=== PATIENT | male | born 1960 | race Caucasian/White ===

== ENCOUNTER 2019-10-13 17:41 | Inpatient (IN) | payer MEDICAID, SELFPAY ==
[~2019-10-13] VITALS: Ht 172.7 cm; Wt 81.2 kg
[2019-10-13] MEDS ORDERED: ACETAMINOPHEN 650MG SUPP PR ONE (18:00)
[2019-10-13 20:24] LABS: BASOPHILS % 0.5 % (0.0-2.0); HEMATOCRIT. 40.1 % (42.0-52.0); HEMOGLOBIN. 13.3 g/dL (14.0-18.0); LYMPHOCYTES % 10.6 % (20.0-50.0); MEAN CORPUSCULAR HEMOGLOBIN 32.3 pg (28.0-32.0); MEAN CORPUSCULAR VOLUME 97.2 fL (80.0-94.0); MONOCYTES % 10.3 % (2.0-8.0); NEUTROPHILS % 78.6 % (40.0-76.0); PLATELET 98 x1000/uL (130-400); RED BLOOD CELL COUNT 4.13 mill/uL (4.7-6.1); RED CELL DISTRIBUTION WIDTH 13.8 % (11.6-14.6)
[2019-10-13 20:29] LABS: INR 1.2; PROTHROMBIN TIME 12.7 sec (9.6-11.0)
[2019-10-13 20:34] LABS: CHLORIDE 123 mEq/L (98-107)
[2019-10-13 20:43] LABS: CREATINE KINASE 35 IU/L (39-308)
[2019-10-13 20:53] LABS: CLARITY URINE CLOUDY (CLEAR); COLOR URINE DARK YELLOW (YELLOW); KETONES URINE TRACE (NEGATIVE); LEUKOCYTE ESTERASE URINE 1+ (NEGATIVE); NITRITE URINE NEGATIVE (NEGATIVE); OCCULT BLOOD URINE NEGATIVE (NEGATIVE); PROTEIN URINE 2+ (NEGATIVE)
[2019-10-13] MEDS ORDERED: SODIUM CHLORIDE 0.45% 1,000 ML IV ONE (21:15)
[2019-10-13] MEDS ORDERED: VANCOMYCIN 1 G PREMIX 200 ML IV ONE (21:15)
[2019-10-13] MEDS ORDERED: PIPERACILLIN/TAZ 3.375G PREMIX 50 ML IV ONE (21:15)
[2019-10-14 06:15] LABS: CHLORIDE 121 mEq/L (98-107)
[2019-10-14] MEDS ORDERED: AZITHROMYCIN 500 MG TABLET PO SCH (11:19)
[2019-10-14] MEDS ORDERED: PIPERACILLIN/TAZOBACTAM 2.25 G in DEXTROSE 5% WATER 50 ML IV SCH ×2 (11:30→17:00)
[2019-10-14 12:00] VITALS: BP_SYST 110; BP_SYST 120; BP_DIAS 83
[2019-10-14] MEDS ORDERED: OMEP20TA15 GT (13:35)
[2019-10-14] MEDS ORDERED: LORA-249 MT (13:35)
[2019-10-14] MEDS ORDERED: [UNRECOGNIZED DRUG - CODE] GT (13:35)
[2019-10-14] MEDS ORDERED: BISA10SU62 RC (13:35)
[2019-10-14 13:36] VITALS: BP 120/83
[2019-10-14] MEDS ORDERED: MAGNESIUM/ALUMINUM HYDROXIDE/SIMETHICONE 30ML UDC PO PRN (14:15)
[2019-10-14] MEDS ORDERED: ACETAMINOPHEN 325MG TABLET PO PRN (14:15)
[2019-10-14] MEDS ORDERED: ONDANSETRON HCL 4MG/2ML INJ IV PRN (14:15)
[2019-10-14] MEDS ORDERED: CLONIDINE 0.1MG TABLET PO PRN (14:15)
[2019-10-14] MEDS ORDERED: DOCUSATE SODIUM 100MG CAPSULE PO PRN (14:15)
[2019-10-14] MEDS ORDERED: LORAZEPAM 0.5MG TABLET PO PRN (14:15)
[2019-10-14 16:00] VITALS: BP 110/83
[2019-10-14] MEDS: DEXTROSE 5% WATER 1,000 ML IV SCH (16:46)
[2019-10-14 17:35] LABS: SODIUM URINE RANDOM 51 mEq/L
[2019-10-14] MEDS ORDERED: NA PHOS,M-B/NA PHOS,DI-BA ENEMA 118ML PR NR ×2 (17:48→20:00)
[2019-10-14] MEDS ORDERED: PIPERACILLIN/TAZOBACTAM 3.375 G in DEXT 5% WATER 100 ML IV SCH ×2 (18:00→22:00)
[2019-10-14 20:00] VITALS: BP 113/72
[2019-10-14] MEDS: POLYETHYLENE GLYCOL 3350 (17GM) 1 DOSE PACK PO SCH (20:21)
[2019-10-14 23:40] VITALS: BP 98/74
[2019-10-15] MEDS: CEFEPIME 1,000 MG in DEXTROSE 5% WATER 50 ML IV SCH ×3 (00:01→23:27)
[2019-10-15] MEDS: METRONIDAZOLE 500 MG PREMIX 100 ML IV SCH ×3 (00:41→16:00)
[2019-10-15 05:00] VITALS: BP 96/65
[2019-10-15] MEDS: ACETAMINOPHEN 650MG/20.3ML UDC GT PRN (06:05)
[2019-10-15] MEDS: DEXTROSE 5% WATER 1,000 ML IV SCH ×2 (06:55→23:26)
[2019-10-15 08:00] VITALS: BP 106/76
[2019-10-15] MEDS: POLYETHYLENE GLYCOL 3350 (17GM) 1 DOSE PACK PO SCH (09:00)
[2019-10-15 09:36] LABS: BASOPHILS % 0.2 % (0.0-2.0); EOSINOPHILS % 0.1 % (0.0-5.0); HEMATOCRIT. 34.4 % (42.0-52.0); HEMOGLOBIN. 11.6 g/dL (14.0-18.0); MEAN CORPUSCULAR HEMOGLOBIN 32.5 pg (28.0-32.0); MEAN CORPUSCULAR VOLUME 96.1 fL (80.0-94.0); MEAN PLATELET VOLUME 12.9 fl (7.4-10.4); MONOCYTES % 6.4 % (2.0-8.0); NEUTROPHILS % 83.3 % (40.0-76.0); PLATELET 100 x1000/uL (130-400); RED BLOOD CELL COUNT 3.58 mill/uL (4.7-6.1); RED CELL DISTRIBUTION WIDTH 13.3 % (11.6-14.6)
[2019-10-15 09:42] LABS: CHLORIDE 120 mEq/L (98-107)
[2019-10-15 09:53] LABS: CREATINE KINASE 303 IU/L (39-308); CREATINE KINASE MB FRACTION 1.3 ng/mL (0.5-3.6); TOTAL IRON BINDING CAPACITY 180 ug/dL (250-450)
[2019-10-15 10:11] LABS: VITAMIN B12 SERUM 1457 pg/mL (211-911)
[2019-10-15 10:19] LABS: FOLIC ACID (FOLATE) SERUM > 20.00 ng/mL (>5.38)
[2019-10-15 11:17] LABS: FERRITIN 1080 ng/mL (22-322)
[2019-10-15 11:28] LABS: HEPATITIS B SURFACE ANTIGEN NEGATIVE
[2019-10-15 11:57] LABS: HEPATITIS A AB IGM NEGATIVE (NEGATIVE)
[2019-10-15] MEDS ORDERED: POTASSIUM CHLORIDE INJ 40 MEQ in DEXT 5% WATER 250 ML IV SCH (12:00)
[2019-10-15] MEDS: ENOXAPARIN 40MG/0.4ML SYR SUBCUT SCH (13:26)
[2019-10-15 13:37] VITALS: BP 115/89
[2019-10-15 20:00] VITALS: BP 113/63
[2019-10-15] MEDS: IPRATROPIUM/ALBUTEROL 0.5-3(2.5)MG/3ML NEB HHN SCH (20:05)
[2019-10-16] VITALS: BP 116/67
[2019-10-16] MEDS: METRONIDAZOLE 500 MG PREMIX 100 ML IV SCH ×3 (00:04→18:17)
[2019-10-16] MEDS: ACETAMINOPHEN 650MG/20.3ML UDC GT PRN ×2 (00:05→21:44)
[2019-10-16] MEDS: IPRATROPIUM/ALBUTEROL 0.5-3(2.5)MG/3ML NEB HHN SCH ×4 (01:25→20:44)
[2019-10-16 04:00] VITALS: BP 126/82
[2019-10-16 07:16] LABS: CHLORIDE 121 mEq/L (98-107)
[2019-10-16 07:20] LABS: BASOPHILS % 1.1 % (0.0-2.0); EOSINOPHILS % 0.8 % (0.0-5.0); HEMATOCRIT. 35.5 % (42.0-52.0); HEMOGLOBIN. 11.9 g/dL (14.0-18.0); LYMPHOCYTES % 13.3 % (20.0-50.0); MEAN CORPUSCULAR HEMOGLOBIN 32.3 pg (28.0-32.0); MEAN CORPUSCULAR VOLUME 96.4 fL (80.0-94.0); MEAN PLATELET VOLUME 13.9 fl (7.4-10.4); MONOCYTES % 5.7 % (2.0-8.0); NEUTROPHILS % 79.1 % (40.0-76.0); PLATELET 112 x1000/uL (130-400); RED BLOOD CELL COUNT 3.68 mill/uL (4.7-6.1); RED CELL DISTRIBUTION WIDTH 13.5 % (11.6-14.6)
[2019-10-16 07:28] LABS: PHOSPHORUS 2.5 mg/dL (2.5-4.9)
[2019-10-16 08:00] VITALS: BP 109/72
[2019-10-16] MEDS: POLYETHYLENE GLYCOL 3350 (17GM) 1 DOSE PACK PO SCH (09:00)
[2019-10-16] MEDS ORDERED: POTASSIUM CHLORIDE INJ 40 MEQ in DEXT 5% WATER 250 ML IV ONE (09:30)
[2019-10-16] MEDS: ENOXAPARIN 40MG/0.4ML SYR SUBCUT SCH (09:49)
[2019-10-16 12:09] VITALS: BP 123/85
[2019-10-16] MEDS: CEFEPIME 1,000 MG in DEXTROSE 5% WATER 50 ML IV SCH ×2 (13:28→23:14)
[2019-10-16] MEDS ORDERED: DOXYCYCLINE 100 MG in DEXT 5% WATER 100 ML IV SCH (15:00)
[2019-10-16 16:00] VITALS: BP 109/76
[2019-10-16] MEDS: DEXTROSE 5% WATER 1,000 ML IV SCH (18:20)
[2019-10-16] MEDS: DOXYCYCLINE HYCLATE 100MG CAPSULE PO SCH (19:00)
[2019-10-16 20:00] VITALS: BP 103/73
[2019-10-17] VITALS: BP 108/78
[2019-10-17] MEDS: METRONIDAZOLE 500 MG PREMIX 100 ML IV SCH ×4 (00:55→23:50)
[2019-10-17] MEDS: IPRATROPIUM/ALBUTEROL 0.5-3(2.5)MG/3ML NEB HHN SCH ×3 (03:03→16:18)
[2019-10-17] MEDS: DEXTROSE 5% WATER 1,000 ML IV SCH ×2 (03:58→17:58)
[2019-10-17 04:00] VITALS: BP 128/79
[2019-10-17 08:00] VITALS: BP 116/57
[2019-10-17] MEDS: POLYETHYLENE GLYCOL 3350 (17GM) 1 DOSE PACK PO SCH (08:28)
[2019-10-17] MEDS: ENOXAPARIN 40MG/0.4ML SYR SUBCUT SCH (08:28)
[2019-10-17] MEDS: DOXYCYCLINE HYCLATE 100MG CAPSULE PO SCH ×2 (08:28→17:17)
[2019-10-17] MEDS: CEFEPIME 1,000 MG in DEXTROSE 5% WATER 50 ML IV SCH ×2 (10:44→23:18)
[2019-10-17 12:00] VITALS: BP 108/67
[2019-10-17 16:00] VITALS: BP_SYST 109; BP_SYST 110; BP_DIAS 74; BP_DIAS 76
[2019-10-17 17:15] LABS: BASOPHILS % 0.5 % (0.0-2.0); EOSINOPHILS % 1.5 % (0.0-5.0); HEMATOCRIT. 31.7 % (42.0-52.0); HEMOGLOBIN. 10.5 g/dL (14.0-18.0); LYMPHOCYTES % 11.9 % (20.0-50.0); MEAN CORPUSCULAR HEMOGLOBIN 31.8 pg (28.0-32.0); MEAN CORPUSCULAR VOLUME 96.3 fL (80.0-94.0); MEAN PLATELET VOLUME 12.1 fl (7.4-10.4); MONOCYTES % 7.1 % (2.0-8.0); PLATELET 121 x1000/uL (130-400); RED CELL DISTRIBUTION WIDTH 13.7 % (11.6-14.6)
[2019-10-17 17:37] LABS: CHLORIDE 117 mEq/L (98-107)
[2019-10-17 17:42] LABS: PHOSPHORUS 2.6 mg/dL (2.5-4.9)
[2019-10-17 20:00] VITALS: BP 133/82
[2019-10-17] MEDS: HYDROCODONE/ACETAMINOPHEN 5/325MG TABLET PO PRN (23:22)
[2019-10-18] VITALS: BP 105/69
[2019-10-18] MEDS: IPRATROPIUM/ALBUTEROL 0.5-3(2.5)MG/3ML NEB HHN SCH ×4 (00:06→16:30)
[2019-10-18 04:00] VITALS: BP 92/63
[2019-10-18] MEDS: DEXTROSE 5% WATER 1,000 ML IV SCH (05:46)
[2019-10-18 08:00] VITALS: BP 110/70
[2019-10-18 08:15] LABS: BASOPHILS % 0.5 % (0.0-2.0); EOSINOPHILS % 3.2 % (0.0-5.0); HEMOGLOBIN. 10.2 g/dL (14.0-18.0); LYMPHOCYTES % 16.1 % (20.0-50.0); MEAN CORPUSCULAR HEMOGLOBIN 32.3 pg (28.0-32.0); MEAN CORPUSCULAR VOLUME 95.3 fL (80.0-94.0); MEAN PLATELET VOLUME 12.3 fl (7.4-10.4); MONOCYTES % 6.6 % (2.0-8.0); NEUTROPHILS % 73.6 % (40.0-76.0); PLATELET 128 x1000/uL (130-400); RED BLOOD CELL COUNT 3.15 mill/uL (4.7-6.1); RED CELL DISTRIBUTION WIDTH 13.3 % (11.6-14.6)
[2019-10-18 08:20] LABS: CHLORIDE 113 mEq/L (98-107)
[2019-10-18 08:27] LABS: PHOSPHORUS 3.5 mg/dL (2.5-4.9)
[2019-10-18] MEDS: METRONIDAZOLE 500 MG PREMIX 100 ML IV SCH ×3 (09:47→23:20)
[2019-10-18] MEDS: DOXYCYCLINE HYCLATE 100MG CAPSULE PO SCH ×2 (09:47→17:22)
[2019-10-18] MEDS: POLYETHYLENE GLYCOL 3350 (17GM) 1 DOSE PACK PO SCH (09:47)
[2019-10-18] MEDS: ENOXAPARIN 40MG/0.4ML SYR SUBCUT SCH (09:50)
[2019-10-18 12:00] VITALS: BP 107/67
[2019-10-18] MEDS: CEFEPIME 1,000 MG in DEXTROSE 5% WATER 50 ML IV SCH ×2 (12:41→23:20)
[2019-10-18] MEDS ORDERED: POTASSIUM CHLORIDE INJ 40 MEQ in DEXT 5% WATER 250 ML IV NR (14:30)
[2019-10-18 16:00] VITALS: BP 113/71
[2019-10-18 20:00] VITALS: BP 120/72
[2019-10-18] MEDS: POTASSIUM CHLORIDE 20MEQ/PACKET GT SCH (23:20)
[2019-10-18] MEDS: HYDROCODONE/ACETAMINOPHEN 5/325MG TABLET PO PRN (23:49)
[2019-10-19] VITALS: BP 127/78
[2019-10-19] MEDS: IPRATROPIUM/ALBUTEROL 0.5-3(2.5)MG/3ML NEB HHN SCH ×3 (01:16→15:50)
[2019-10-19 04:00] VITALS: BP 129/72
[2019-10-19] MEDS: DEXTROSE 5% WATER 1,000 ML IV SCH ×2 (05:41→09:21)
[2019-10-19 07:35] LABS: BASOPHILS % 0.4 % (0.0-2.0); EOSINOPHILS % 4.3 % (0.0-5.0); HEMATOCRIT. 28.8 % (42.0-52.0); HEMOGLOBIN. 9.7 g/dL (14.0-18.0); LYMPHOCYTES % 18.3 % (20.0-50.0); MEAN CORPUSCULAR HEMOGLOBIN 32.3 pg (28.0-32.0); MEAN CORPUSCULAR VOLUME 95.6 fL (80.0-94.0); MEAN PLATELET VOLUME 10.7 fl (7.4-10.4); MONOCYTES % 8.9 % (2.0-8.0); NEUTROPHILS % 68.1 % (40.0-76.0); PLATELET 184 x1000/uL (130-400); RED BLOOD CELL COUNT 3.01 mill/uL (4.7-6.1); RED CELL DISTRIBUTION WIDTH 13.5 % (11.6-14.6)
[2019-10-19 07:54] LABS: CHLORIDE 113 mEq/L (98-107)
[2019-10-19 07:58] LABS: PHOSPHORUS 3.8 mg/dL (2.5-4.9)
[2019-10-19] MEDS: DOXYCYCLINE HYCLATE 100MG CAPSULE PO SCH ×2 (09:00→18:22)
[2019-10-19] MEDS: METRONIDAZOLE 500 MG PREMIX 100 ML IV SCH ×2 (09:51→18:17)
[2019-10-19] MEDS: POTASSIUM CHLORIDE 20MEQ/PACKET GT SCH ×2 (09:51→21:40)
[2019-10-19] MEDS: POLYETHYLENE GLYCOL 3350 (17GM) 1 DOSE PACK PO SCH (09:52)
[2019-10-19] MEDS: ENOXAPARIN 40MG/0.4ML SYR SUBCUT SCH (09:52)
[2019-10-19 10:00] VITALS: BP 119/65
[2019-10-19] MEDS: CEFEPIME 1,000 MG in DEXTROSE 5% WATER 50 ML IV SCH ×2 (12:17→21:40)
[2019-10-19 20:00] VITALS: BP 110/79
[2019-10-20] VITALS: BP 119/82
[2019-10-20] MEDS: METRONIDAZOLE 500 MG PREMIX 100 ML IV SCH ×3 (00:26→16:32)
[2019-10-20] MEDS: IPRATROPIUM/ALBUTEROL 0.5-3(2.5)MG/3ML NEB HHN SCH ×3 (00:40→21:20)
[2019-10-20] MEDS: DEXTROSE 5% WATER 1,000 ML IV SCH ×2 (02:53→16:32)
[2019-10-20 04:00] VITALS: BP 128/88
[2019-10-20 06:04] LABS: BASOPHILS % 0.3 % (0.0-2.0); EOSINOPHILS % 3.6 % (0.0-5.0); HEMATOCRIT. 30.3 % (42.0-52.0); HEMOGLOBIN. 10.4 g/dL (14.0-18.0); LYMPHOCYTES % 20.9 % (20.0-50.0); MEAN CORPUSCULAR HEMOGLOBIN 32.2 pg (28.0-32.0); MEAN CORPUSCULAR VOLUME 94.3 fL (80.0-94.0); MEAN PLATELET VOLUME 9.4 fl (7.4-10.4); MONOCYTES % 8.6 % (2.0-8.0); NEUTROPHILS % 66.6 % (40.0-76.0); PLATELET 240 x1000/uL (130-400); RED BLOOD CELL COUNT 3.22 mill/uL (4.7-6.1); RED CELL DISTRIBUTION WIDTH 13.1 % (11.6-14.6)
[2019-10-20 06:55] LABS: CHLORIDE 110 mEq/L (98-107)
[2019-10-20 08:00] VITALS: BP 117/84
[2019-10-20] MEDS ORDERED: MAGNESIUM 2 G PREMIX 50 ML IV SCH (09:00)
[2019-10-20] MEDS: DOXYCYCLINE HYCLATE 100MG CAPSULE PO SCH ×2 (09:41→16:37)
[2019-10-20] MEDS: POTASSIUM CHLORIDE 20MEQ/PACKET GT SCH ×2 (09:41→21:15)
[2019-10-20] MEDS: ENOXAPARIN 40MG/0.4ML SYR SUBCUT SCH (09:41)
[2019-10-20] MEDS: POLYETHYLENE GLYCOL 3350 (17GM) 1 DOSE PACK PO SCH (09:41)
[2019-10-20 12:00] VITALS: BP 101/77
[2019-10-20 16:00] VITALS: BP 105/72
[2019-10-20 20:00] VITALS: BP 103/73
[2019-10-21] VITALS: BP 107/75
[2019-10-21 04:00] VITALS: BP 104/69
[2019-10-21 07:25] LABS: BASOPHILS % 0.4 % (0.0-2.0); EOSINOPHILS % 2.7 % (0.0-5.0); HEMATOCRIT. 34.1 % (42.0-52.0); HEMOGLOBIN. 11.5 g/dL (14.0-18.0); LYMPHOCYTES % 24.4 % (20.0-50.0); MEAN CORPUSCULAR HEMOGLOBIN 32.3 pg (28.0-32.0); MEAN CORPUSCULAR VOLUME 95.6 fL (80.0-94.0); MEAN PLATELET VOLUME 9.7 fl (7.4-10.4); MONOCYTES % 7.1 % (2.0-8.0); NEUTROPHILS % 65.4 % (40.0-76.0); PLATELET 302 x1000/uL (130-400); RED BLOOD CELL COUNT 3.56 mill/uL (4.7-6.1); RED CELL DISTRIBUTION WIDTH 13.5 % (11.6-14.6)
[2019-10-21 09:03] LABS: CHLORIDE 108 mEq/L (98-107)
[2019-10-21] MEDS: IPRATROPIUM/ALBUTEROL 0.5-3(2.5)MG/3ML NEB HHN SCH ×3 (09:03→21:12)
[2019-10-21 09:12] LABS: PHOSPHORUS 3.9 mg/dL (2.5-4.9)
[2019-10-21] MEDS: POLYETHYLENE GLYCOL 3350 (17GM) 1 DOSE PACK PO SCH (09:16)
[2019-10-21] MEDS: POTASSIUM CHLORIDE 20MEQ/PACKET GT SCH (09:16)
[2019-10-21] MEDS: DOXYCYCLINE HYCLATE 100MG CAPSULE PO SCH ×2 (09:16→16:16)
[2019-10-21] MEDS: ENOXAPARIN 40MG/0.4ML SYR SUBCUT SCH (09:17)
[2019-10-21] MEDS: DEXTROSE 5% WATER 1,000 ML IV SCH (10:42)
[2019-10-21] MEDS: ACETAMINOPHEN 650MG/20.3ML UDC GT PRN (12:28)
[2019-10-21 20:00] VITALS: BP 117/79
[2019-10-21] MEDS: CEFEPIME 1,000 MG in DEXTROSE 5% WATER 50 ML IV SCH (21:54)
[2019-10-22] VITALS: BP 120/70
[2019-10-22 04:00] VITALS: BP 114/81
[2019-10-22] MEDS: IPRATROPIUM/ALBUTEROL 0.5-3(2.5)MG/3ML NEB HHN SCH ×3 (04:56→15:46)
[2019-10-22 07:20] LABS: BASOPHILS % 0.4 % (0.0-2.0); EOSINOPHILS % 1.4 % (0.0-5.0); HEMATOCRIT. 39.1 % (42.0-52.0); HEMOGLOBIN. 13.1 g/dL (14.0-18.0); LYMPHOCYTES % 17.8 % (20.0-50.0); MEAN CORPUSCULAR HEMOGLOBIN 32.6 pg (28.0-32.0); MEAN CORPUSCULAR VOLUME 97.2 fL (80.0-94.0); MEAN PLATELET VOLUME 9.8 fl (7.4-10.4); MONOCYTES % 5.6 % (2.0-8.0); NEUTROPHILS % 74.8 % (40.0-76.0); PLATELET 325 x1000/uL (130-400); RED BLOOD CELL COUNT 4.02 mill/uL (4.7-6.1)
[2019-10-22 07:38] LABS: CHLORIDE 107 mEq/L (98-107)
[2019-10-22 07:44] LABS: PHOSPHORUS 3.8 mg/dL (2.5-4.9)
[2019-10-22 08:00] VITALS: BP 100/65
[2019-10-22] MEDS: CEFEPIME 1,000 MG in DEXTROSE 5% WATER 50 ML IV SCH ×2 (09:17→20:31)
[2019-10-22] MEDS: ENOXAPARIN 40MG/0.4ML SYR SUBCUT SCH (09:18)
[2019-10-22] MEDS: POLYETHYLENE GLYCOL 3350 (17GM) 1 DOSE PACK PO SCH (09:18)
[2019-10-22 12:00] VITALS: BP 100/67
[2019-10-22] MEDS: ACETAMINOPHEN 650MG/20.3ML UDC GT PRN (14:33)
[2019-10-22 16:00] VITALS: BP 100/72
[2019-10-22 20:00] VITALS: BP 141/66
[2019-10-23] VITALS: BP 108/75
[2019-10-23 04:00] VITALS: BP 102/71
[2019-10-23 08:00] VITALS: BP 130/82
[2019-10-23] MEDS: CEFEPIME 1,000 MG in DEXTROSE 5% WATER 50 ML IV SCH ×2 (08:05→20:44)
[2019-10-23] MEDS: IPRATROPIUM/ALBUTEROL 0.5-3(2.5)MG/3ML NEB HHN SCH ×3 (08:54→20:28)
[2019-10-23] MEDS: POLYETHYLENE GLYCOL 3350 (17GM) 1 DOSE PACK PO SCH (09:13)
[2019-10-23] MEDS: ENOXAPARIN 40MG/0.4ML SYR SUBCUT SCH (09:14)
[2019-10-23 09:48] LABS: HEMATOCRIT. 33.4 % (42.0-52.0); HEMOGLOBIN. 11.4 g/dL (14.0-18.0); MEAN CORPUSCULAR HEMOGLOBIN 32.4 pg (28.0-32.0); MEAN CORPUSCULAR VOLUME 94.9 fL (80.0-94.0); MEAN PLATELET VOLUME 8.1 fl (7.4-10.4); PLATELET 451 x1000/uL (130-400); RED BLOOD CELL COUNT 3.52 mill/uL (4.7-6.1); RED CELL DISTRIBUTION WIDTH 13.5 % (11.6-14.6)
[2019-10-23 09:52] LABS: CHLORIDE 107 mEq/L (98-107)
[2019-10-23 09:59] LABS: PHOSPHORUS 4.6 mg/dL (2.5-4.9)
[2019-10-23 12:00] VITALS: BP 156/78
[2019-10-23 12:40] LABS: PLATELET ESTIMATE INCREASED
[2019-10-23] MEDS ORDERED: VANCOMYCIN 2,000 MG in DEXT 5% WATER 500 ML IV NR (15:00)
[2019-10-23 16:00] VITALS: BP 171/92
[2019-10-23 20:00] VITALS: BP 109/74
[2019-10-24] VITALS: BP 110/72
[2019-10-24] MEDS: VANCOMYCIN 1 G PREMIX 200 ML IV SCH ×3 (01:40→18:15)
[2019-10-24 04:00] VITALS: BP 105/74
[2019-10-24 06:44] LABS: HEMOGLOBIN. 11.9 g/dL (14.0-18.0); MEAN CORPUSCULAR HEMOGLOBIN 32.7 pg (28.0-32.0); MEAN CORPUSCULAR VOLUME 95.8 fL (80.0-94.0); MEAN PLATELET VOLUME 8.5 fl (7.4-10.4); PLATELET 411 x1000/uL (130-400); RED BLOOD CELL COUNT 3.65 mill/uL (4.7-6.1); RED CELL DISTRIBUTION WIDTH 13.4 % (11.6-14.6)
[2019-10-24 07:39] LABS: CHLORIDE 103 mEq/L (98-107)
[2019-10-24 07:44] LABS: PHOSPHORUS 3.7 mg/dL (2.5-4.9)
[2019-10-24 08:00] VITALS: BP 115/78
[2019-10-24] MEDS: IPRATROPIUM/ALBUTEROL 0.5-3(2.5)MG/3ML NEB HHN SCH (09:16)
[2019-10-24] MEDS: ASCORBIC ACID 500 MG TABLET PO SCH (09:33)
[2019-10-24] MEDS: POLYETHYLENE GLYCOL 3350 (17GM) 1 DOSE PACK PO SCH (09:33)
[2019-10-24] MEDS: ZINC SULFATE 220 MG ( 50 ) CAPSULE PO SCH (09:33)
[2019-10-24] MEDS: CEFEPIME 1,000 MG in DEXTROSE 5% WATER 50 ML IV SCH ×2 (09:33→21:00)
[2019-10-24] MEDS: ENOXAPARIN 40MG/0.4ML SYR SUBCUT SCH (09:33)
[2019-10-24 11:43] LABS: PLATELET ESTIMATE SLIGHTLY INCREASED
[2019-10-24 12:00] VITALS: BP 106/77
[2019-10-24 16:00] VITALS: BP 119/77
[2019-10-24 20:00] VITALS: BP 109/85
[2019-10-25] VITALS (7 sets, daily range): BP systolic 96–110; BP diastolic 73–76
[2019-10-25] MEDS: IPRATROPIUM/ALBUTEROL 0.5-3(2.5)MG/3ML NEB HHN SCH ×3 (00:32→13:12)
[2019-10-25] MEDS: ZINC SULFATE 220 MG ( 50 ) CAPSULE PO SCH (09:32)
[2019-10-25] MEDS: AMOXICILLIN/POTASSIUM CLAVULANATE 875/125MG TAB PO SCH ×2 (09:32→20:54)
[2019-10-25] MEDS: ASCORBIC ACID 500 MG TABLET PO SCH (09:32)
[2019-10-25] MEDS: POLYETHYLENE GLYCOL 3350 (17GM) 1 DOSE PACK PO SCH (09:32)
[2019-10-25] MEDS: DOXYCYCLINE HYCLATE 100MG CAPSULE PO SCH ×2 (09:33→17:31)
[2019-10-25] MEDS: ENOXAPARIN 40MG/0.4ML SYR SUBCUT SCH (09:33)
[2019-10-26] VITALS: BP 109/76
[2019-10-26 04:00] VITALS: BP 110/82
[2019-10-26 08:00] VITALS: BP 105/75
[2019-10-26] MEDS: ENOXAPARIN 40MG/0.4ML SYR SUBCUT SCH (09:42)
[2019-10-26] MEDS: DOXYCYCLINE HYCLATE 100MG CAPSULE PO SCH ×2 (09:42→17:19)
[2019-10-26] MEDS: POLYETHYLENE GLYCOL 3350 (17GM) 1 DOSE PACK PO SCH (09:42)
[2019-10-26] MEDS: AMOXICILLIN/POTASSIUM CLAVULANATE 875/125MG TAB PO SCH ×2 (09:42→22:28)
[2019-10-26] MEDS: ZINC SULFATE 220 MG ( 50 ) CAPSULE PO SCH (09:42)
[2019-10-26] MEDS: ASCORBIC ACID 500 MG TABLET PO SCH (09:42)
[2019-10-26] MEDS: IPRATROPIUM/ALBUTEROL 0.5-3(2.5)MG/3ML NEB HHN SCH ×3 (09:50→22:41)
[2019-10-26 12:00] VITALS: BP 111/74
[2019-10-26 16:00] VITALS: BP 107/75
[2019-10-26 20:00] VITALS: BP 125/75
[2019-10-27] VITALS: BP 115/80
[2019-10-27 04:00] VITALS: BP 104/72
[2019-10-27 08:00] VITALS: BP 113/77
[2019-10-27] MEDS: ZINC SULFATE 220 MG ( 50 ) CAPSULE PO SCH (09:12)
[2019-10-27] MEDS: AMOXICILLIN/POTASSIUM CLAVULANATE 875/125MG TAB PO SCH ×2 (09:12→21:36)
[2019-10-27] MEDS: DOXYCYCLINE HYCLATE 100MG CAPSULE PO SCH ×2 (09:12→16:37)
[2019-10-27] MEDS: ASCORBIC ACID 500 MG TABLET PO SCH (09:12)
[2019-10-27] MEDS: ENOXAPARIN 40MG/0.4ML SYR SUBCUT SCH (09:13)
[2019-10-27] MEDS: POLYETHYLENE GLYCOL 3350 (17GM) 1 DOSE PACK PO SCH (09:13)
[2019-10-27] MEDS: IPRATROPIUM/ALBUTEROL 0.5-3(2.5)MG/3ML NEB HHN SCH ×2 (09:36→16:00)
[2019-10-27 12:00] VITALS: BP 120/89
[2019-10-27] MEDS: ACETAMINOPHEN 650MG/20.3ML UDC GT PRN ×2 (14:56→21:36)
[2019-10-27 16:00] VITALS: BP 117/83
[2019-10-27 20:00] VITALS: BP 127/85
[2019-10-28] VITALS: BP 112/83
[2019-10-28 04:00] VITALS: BP 113/76
[2019-10-28 08:00] VITALS: BP 110/79
[2019-10-28] MEDS: POLYETHYLENE GLYCOL 3350 (17GM) 1 DOSE PACK PO SCH (08:30)
[2019-10-28] MEDS: DOXYCYCLINE HYCLATE 100MG CAPSULE PO SCH ×2 (08:30→17:07)
[2019-10-28] MEDS: AMOXICILLIN/POTASSIUM CLAVULANATE 875/125MG TAB PO SCH ×2 (08:30→21:35)
[2019-10-28] MEDS: ASCORBIC ACID 500 MG TABLET PO SCH (08:30)
[2019-10-28] MEDS: ZINC SULFATE 220 MG ( 50 ) CAPSULE PO SCH (08:30)
[2019-10-28] MEDS: ENOXAPARIN 40MG/0.4ML SYR SUBCUT SCH (08:31)
[2019-10-28] MEDS: IPRATROPIUM/ALBUTEROL 0.5-3(2.5)MG/3ML NEB HHN SCH ×3 (09:30→23:36)
[2019-10-28] MEDS: ACETAMINOPHEN 650MG/20.3ML UDC GT PRN ×2 (12:37→21:43)
[2019-10-28 13:00] VITALS: BP 112/73
[2019-10-28 16:00] VITALS: BP 108/73
[2019-10-28 20:00] VITALS: BP 112/77
[2019-10-29] VITALS: BP 111/81
[2019-10-29 04:00] VITALS: BP 114/81
[2019-10-29] MEDS: ACETAMINOPHEN 650MG/20.3ML UDC GT PRN (06:30)
[2019-10-29 08:00] VITALS: BP 107/78
[2019-10-29] MEDS: POLYETHYLENE GLYCOL 3350 (17GM) 1 DOSE PACK PO SCH (09:00)
[2019-10-29] MEDS: ENOXAPARIN 40MG/0.4ML SYR SUBCUT SCH (09:00)
[2019-10-29] MEDS: ASCORBIC ACID 500 MG TABLET PO SCH (10:04)
[2019-10-29] MEDS: DOXYCYCLINE HYCLATE 100MG CAPSULE PO SCH ×2 (10:04→17:28)
[2019-10-29] MEDS: ZINC SULFATE 220 MG ( 50 ) CAPSULE PO SCH (10:04)
[2019-10-29] MEDS: AMOXICILLIN/POTASSIUM CLAVULANATE 875/125MG TAB PO SCH ×2 (10:04→21:02)
[2019-10-29] MEDS: IPRATROPIUM/ALBUTEROL 0.5-3(2.5)MG/3ML NEB HHN SCH ×2 (10:56→16:53)
[2019-10-29 12:00] VITALS: BP 105/76
[2019-10-29 16:00] VITALS: BP 109/77
[2019-10-29 20:00] VITALS: BP 106/80
[2019-10-30] VITALS (7 sets, daily range): BP systolic 90–123; BP diastolic 70–87
[2019-10-30] MEDS: IPRATROPIUM/ALBUTEROL 0.5-3(2.5)MG/3ML NEB HHN SCH ×4 (00:26→16:49)
[2019-10-30] MEDS: POLYETHYLENE GLYCOL 3350 (17GM) 1 DOSE PACK PO SCH (09:00)
[2019-10-30] MEDS: ASCORBIC ACID 500 MG TABLET PO SCH (09:56)
[2019-10-30] MEDS: AMOXICILLIN/POTASSIUM CLAVULANATE 875/125MG TAB PO SCH (09:56)
[2019-10-30] MEDS: ENOXAPARIN 40MG/0.4ML SYR SUBCUT SCH (09:56)
[2019-10-30] MEDS: DOXYCYCLINE HYCLATE 100MG CAPSULE PO SCH ×2 (09:57→17:48)
[2019-10-30] MEDS: ZINC SULFATE 220 MG ( 50 ) CAPSULE PO SCH (10:40)
[2019-10-30] MEDS: ACETAMINOPHEN 650MG/20.3ML UDC GT PRN (21:18)
[2019-10-31] VITALS: BP 106/84
[2019-10-31 04:00] VITALS: BP 114/84
[2019-10-31] MEDS: IPRATROPIUM/ALBUTEROL 0.5-3(2.5)MG/3ML NEB HHN SCH ×3 (05:09→22:02)
[2019-10-31 08:00] VITALS: BP 115/80
[2019-10-31] MEDS: ZINC SULFATE 220 MG ( 50 ) CAPSULE PO SCH (08:18)
[2019-10-31] MEDS: ASCORBIC ACID 500 MG TABLET PO SCH (08:18)
[2019-10-31] MEDS: ENOXAPARIN 40MG/0.4ML SYR SUBCUT SCH (08:18)
[2019-10-31] MEDS: DOXYCYCLINE HYCLATE 100MG CAPSULE PO SCH (08:18)
[2019-10-31] MEDS: POLYETHYLENE GLYCOL 3350 (17GM) 1 DOSE PACK PO SCH (09:00)
[2019-10-31] MEDS: ACETAMINOPHEN 650MG/20.3ML UDC GT PRN (11:12)
[2019-10-31 12:00] VITALS: BP 109/74
[2019-10-31 16:00] VITALS: BP 105/77
[2019-10-31 20:00] VITALS: BP 116/81
[2019-11-01 00:29] VITALS: BP 114/82
[2019-11-01 04:00] VITALS: BP 104/79
[2019-11-01 08:43] VITALS: BP 121/85
[2019-11-01] MEDS: POLYETHYLENE GLYCOL 3350 (17GM) 1 DOSE PACK PO SCH (08:54)
[2019-11-01] MEDS: ENOXAPARIN 40MG/0.4ML SYR SUBCUT SCH (08:54)
[2019-11-01] MEDS: ZINC SULFATE 220 MG ( 50 ) CAPSULE PO SCH (08:55)
[2019-11-01] MEDS: ASCORBIC ACID 500 MG TABLET PO SCH (08:55)
[2019-11-01] MEDS: IPRATROPIUM/ALBUTEROL 0.5-3(2.5)MG/3ML NEB HHN SCH ×2 (09:24→16:10)
[2019-11-01 12:00] VITALS: BP 111/80
[2019-11-01] MEDS: ASPIRIN 81MG TABLET PO SCH (14:50)
[2019-11-01 16:00] VITALS: BP 116/84
[2019-11-01 20:05] VITALS: BP 110/81
[2019-11-01] MEDS: ATORVASTATIN CALCIUM 20MG TABLET PO SCH (20:45)
[2019-11-02 00:15] VITALS: BP 110/73
[2019-11-02] MEDS: IPRATROPIUM/ALBUTEROL 0.5-3(2.5)MG/3ML NEB HHN SCH ×3 (00:47→15:43)
[2019-11-02 04:00] VITALS: BP 104/75
[2019-11-02 06:50] LABS: EOSINOPHILS % 2.5 % (0.0-5.0); HEMATOCRIT. 37.1 % (42.0-52.0); HEMOGLOBIN. 12.9 g/dL (14.0-18.0); MEAN CORPUSCULAR HEMOGLOBIN 32.8 pg (28.0-32.0); MEAN CORPUSCULAR VOLUME 94.4 fL (80.0-94.0); MEAN PLATELET VOLUME 8.3 fl (7.4-10.4); MONOCYTES % 7.6 % (2.0-8.0); NEUTROPHILS % 49.9 % (40.0-76.0); PLATELET 264 x1000/uL (130-400); RED BLOOD CELL COUNT 3.93 mill/uL (4.7-6.1); RED CELL DISTRIBUTION WIDTH 14.2 % (11.6-14.6)
[2019-11-02 07:16] LABS: CHLORIDE 102 mEq/L (98-107)
[2019-11-02] MEDS: POLYETHYLENE GLYCOL 3350 (17GM) 1 DOSE PACK PO SCH (08:51)
[2019-11-02] MEDS: ASPIRIN 81MG TABLET PO SCH (08:51)
[2019-11-02] MEDS: ENOXAPARIN 40MG/0.4ML SYR SUBCUT SCH (08:51)
[2019-11-02] MEDS: ZINC SULFATE 220 MG ( 50 ) CAPSULE PO SCH (08:51)
[2019-11-02] MEDS: ASCORBIC ACID 500 MG TABLET PO SCH (08:51)
[2019-11-02 09:21] VITALS: BP 109/72
[2019-11-02 12:48] VITALS: BP 108/82
[2019-11-02 16:29] VITALS: BP 116/76
[2019-11-02 20:29] VITALS: BP 112/82
[2019-11-02] MEDS: ATORVASTATIN CALCIUM 20MG TABLET PO SCH (21:00)
[2019-11-03] VITALS: BP 113/82
[2019-11-03] MEDS: IPRATROPIUM/ALBUTEROL 0.5-3(2.5)MG/3ML NEB HHN SCH ×3 (00:13→15:39)
[2019-11-03 04:00] VITALS: BP 116/81
[2019-11-03 08:00] VITALS: BP 119/83
[2019-11-03] MEDS: POLYETHYLENE GLYCOL 3350 (17GM) 1 DOSE PACK PO SCH (09:08)
[2019-11-03] MEDS: ZINC SULFATE 220 MG ( 50 ) CAPSULE PO SCH (09:09)
[2019-11-03] MEDS: ASPIRIN 81MG TABLET PO SCH (09:09)
[2019-11-03] MEDS: ENOXAPARIN 40MG/0.4ML SYR SUBCUT SCH (09:09)
[2019-11-03] MEDS: ASCORBIC ACID 500 MG TABLET PO SCH (09:09)
[2019-11-03 20:00] VITALS: BP 108/73
[2019-11-03] MEDS: ATORVASTATIN CALCIUM 20MG TABLET PO SCH (21:08)
[2019-11-04] VITALS: BP 113/70
[2019-11-04] MEDS: IPRATROPIUM/ALBUTEROL 0.5-3(2.5)MG/3ML NEB HHN SCH ×4 (00:54→22:00)
[2019-11-04 04:00] VITALS: BP 114/84
[2019-11-04] MEDS: POLYETHYLENE GLYCOL 3350 (17GM) 1 DOSE PACK PO SCH (09:39)
[2019-11-04] MEDS: ZINC SULFATE 220 MG ( 50 ) CAPSULE PO SCH (09:39)
[2019-11-04] MEDS: ASCORBIC ACID 500 MG TABLET PO SCH (09:39)
[2019-11-04] MEDS: ASPIRIN 81MG TABLET PO SCH (09:40)
[2019-11-04] MEDS: ENOXAPARIN 40MG/0.4ML SYR SUBCUT SCH (09:41)
[2019-11-04 12:00] VITALS: BP 106/75
[2019-11-04 16:00] VITALS: BP 126/75
[2019-11-04 20:00] VITALS: BP 117/81
[2019-11-04] MEDS: ATORVASTATIN CALCIUM 20MG TABLET PO SCH (21:02)
[2019-11-05] VITALS: BP 121/82
[2019-11-05] MEDS: IPRATROPIUM/ALBUTEROL 0.5-3(2.5)MG/3ML NEB HHN SCH ×3 (00:40→15:46)
[2019-11-05 04:00] VITALS: BP 109/72
[2019-11-05 08:00] VITALS: BP 116/84
[2019-11-05] MEDS: ASPIRIN 81MG TABLET PO SCH (08:12)
[2019-11-05] MEDS: ASCORBIC ACID 500 MG TABLET PO SCH (08:12)
[2019-11-05] MEDS: ZINC SULFATE 220 MG ( 50 ) CAPSULE PO SCH (08:12)
[2019-11-05] MEDS: POLYETHYLENE GLYCOL 3350 (17GM) 1 DOSE PACK PO SCH (08:13)
[2019-11-05] MEDS: ENOXAPARIN 40MG/0.4ML SYR SUBCUT SCH (08:13)
[2019-11-05 12:00] VITALS: BP 116/84
[2019-11-05 16:00] VITALS: BP 107/77
[2019-11-05 20:00] VITALS: BP 117/82
[2019-11-05] MEDS: ATORVASTATIN CALCIUM 20MG TABLET PO SCH (21:00)
[2019-11-06] VITALS: BP 113/78
[2019-11-06] MEDS: IPRATROPIUM/ALBUTEROL 0.5-3(2.5)MG/3ML NEB HHN SCH ×3 (00:48→14:50)
[2019-11-06 04:00] VITALS: BP 107/79
[2019-11-06 08:00] VITALS: BP 117/84
[2019-11-06] MEDS: POLYETHYLENE GLYCOL 3350 (17GM) 1 DOSE PACK PO SCH (08:35)
[2019-11-06] MEDS: ASPIRIN 81MG TABLET PO SCH (08:51)
[2019-11-06] MEDS: ZINC SULFATE 220 MG ( 50 ) CAPSULE PO SCH (08:51)
[2019-11-06] MEDS: ENOXAPARIN 40MG/0.4ML SYR SUBCUT SCH (08:51)
[2019-11-06] MEDS: ASCORBIC ACID 500 MG TABLET PO SCH (08:51)
[2019-11-06 12:00] VITALS: BP 106/81
[2019-11-06 16:00] VITALS: BP 107/73
[2019-11-06 20:00] VITALS: BP 110/83
[2019-11-06] MEDS: ATORVASTATIN CALCIUM 20MG TABLET PO SCH (21:09)
[2019-11-07] VITALS: BP 126/83
[2019-11-07] MEDS: IPRATROPIUM/ALBUTEROL 0.5-3(2.5)MG/3ML NEB HHN SCH ×3 (02:00→17:37)
[2019-11-07 04:00] VITALS: BP 120/84
[2019-11-07 08:00] VITALS: BP 128/89
[2019-11-07] MEDS: POLYETHYLENE GLYCOL 3350 (17GM) 1 DOSE PACK PO SCH (09:00)
[2019-11-07] MEDS: ASCORBIC ACID 500 MG TABLET PO SCH (09:35)
[2019-11-07] MEDS: ENOXAPARIN 40MG/0.4ML SYR SUBCUT SCH (09:35)
[2019-11-07] MEDS: ASPIRIN 81MG TABLET PO SCH (09:35)
[2019-11-07 12:00] VITALS: BP 113/80
[2019-11-07 16:00] VITALS: BP 112/83
[2019-11-07 20:00] VITALS: BP 114/61
[2019-11-07] MEDS: ATORVASTATIN CALCIUM 20MG TABLET PO SCH (22:13)
[2019-11-08] VITALS: BP 113/58
[2019-11-08 04:00] VITALS: BP 101/67
[2019-11-08 08:00] VITALS: BP 109/80
[2019-11-08] MEDS: IPRATROPIUM/ALBUTEROL 0.5-3(2.5)MG/3ML NEB HHN SCH ×3 (09:40→15:39)
[2019-11-08] MEDS: ASPIRIN 81MG TABLET PO SCH (09:45)
[2019-11-08] MEDS: ENOXAPARIN 40MG/0.4ML SYR SUBCUT SCH (09:45)
[2019-11-08] MEDS: POLYETHYLENE GLYCOL 3350 (17GM) 1 DOSE PACK PO SCH (09:45)
[2019-11-08] MEDS: ASCORBIC ACID 500 MG TABLET PO SCH (09:45)
[2019-11-08 12:00] VITALS: BP 105/76
[2019-11-08 16:00] VITALS: BP 108/68
[2019-11-08 20:00] VITALS: BP 112/82
[2019-11-08] MEDS: ATORVASTATIN CALCIUM 20MG TABLET PO SCH (20:47)
[2019-11-09] VITALS: BP 114/81
[2019-11-09 04:00] VITALS: BP 109/78
[2019-11-09 08:00] VITALS: BP 116/81
[2019-11-09] MEDS: POLYETHYLENE GLYCOL 3350 (17GM) 1 DOSE PACK PO SCH (08:46)
[2019-11-09] MEDS: ASPIRIN 81MG TABLET PO SCH (08:46)
[2019-11-09] MEDS: ASCORBIC ACID 500 MG TABLET PO SCH (08:46)
[2019-11-09] MEDS: ENOXAPARIN 40MG/0.4ML SYR SUBCUT SCH (08:47)
[2019-11-09 12:00] VITALS: BP 111/88
[2019-11-09 16:00] VITALS: BP 109/82
[2019-11-09] MEDS: IPRATROPIUM/ALBUTEROL 0.5-3(2.5)MG/3ML NEB HHN SCH (17:00)
[2019-11-09 20:00] VITALS: BP 121/87
[2019-11-09] MEDS: ATORVASTATIN CALCIUM 20MG TABLET PO SCH (21:28)
[2019-11-09] MEDS: ACETAMINOPHEN 650MG/20.3ML UDC GT PRN (21:59)
[2019-11-10] VITALS: BP 112/81
[2019-11-10] MEDS: IPRATROPIUM/ALBUTEROL 0.5-3(2.5)MG/3ML NEB HHN SCH ×2 (00:47→12:35)
[2019-11-10 04:00] VITALS: BP 109/82
[2019-11-10 07:33] LABS: HEMATOCRIT 39.3 % (42.0-52.0); HEMOGLOBIN 13.5 g/dL (14.0-18.0); MEAN CORPUSCULAR HEMOGLOBIN 32.5 pg (28.0-32.0); MEAN CORPUSCULAR VOLUME 94.5 fL (80.0-94.0); PLATELET 145 x1000/uL (130-400); RED BLOOD CELL COUNT 4.16 mill/uL (4.7-6.1); RED CELL DISTRIBUTION WIDTH 14.1 % (11.6-14.6)
[2019-11-10 07:51] LABS: CHLORIDE 107 mEq/L (98-107)
[2019-11-10 08:00] VITALS: BP 108/81
[2019-11-10] MEDS: ASPIRIN 81MG TABLET PO SCH (08:52)
[2019-11-10] MEDS: POLYETHYLENE GLYCOL 3350 (17GM) 1 DOSE PACK PO SCH (08:52)
[2019-11-10] MEDS: ENOXAPARIN 40MG/0.4ML SYR SUBCUT SCH (08:52)
[2019-11-10] MEDS: ASCORBIC ACID 500 MG TABLET PO SCH (08:52)
[2019-11-10 12:00] VITALS: BP 110/82
[2019-11-10 16:00] VITALS: BP 114/81
[2019-11-10 20:00] VITALS: BP 119/87
[2019-11-10] MEDS: ATORVASTATIN CALCIUM 20MG TABLET PO SCH (21:44)
[2019-11-11] VITALS: BP 108/85
[2019-11-11] MEDS: IPRATROPIUM/ALBUTEROL 0.5-3(2.5)MG/3ML NEB HHN SCH ×3 (01:28→17:01)
[2019-11-11 04:00] VITALS: BP 112/81
[2019-11-11 08:00] VITALS: BP 132/79
[2019-11-11] MEDS: ASCORBIC ACID 500 MG TABLET PO SCH (08:34)
[2019-11-11] MEDS: POLYETHYLENE GLYCOL 3350 (17GM) 1 DOSE PACK PO SCH (08:34)
[2019-11-11] MEDS: ASPIRIN 81MG TABLET PO SCH (08:35)
[2019-11-11] MEDS: ENOXAPARIN 40MG/0.4ML SYR SUBCUT SCH (08:35)
[2019-11-11 12:00] VITALS: BP 112/85
[2019-11-11 16:00] VITALS: BP 119/85
[2019-11-11 20:00] VITALS: BP 118/83
[2019-11-11] MEDS: ATORVASTATIN CALCIUM 20MG TABLET PO SCH (21:44)
[2019-11-12] VITALS: BP 119/87
[2019-11-12] MEDS: IPRATROPIUM/ALBUTEROL 0.5-3(2.5)MG/3ML NEB HHN SCH ×4 (00:35→17:05)
[2019-11-12 04:00] VITALS: BP 109/79
[2019-11-12 08:00] VITALS: BP 115/87
[2019-11-12] MEDS: ASPIRIN 81MG TABLET PO SCH (09:13)
[2019-11-12] MEDS: ENOXAPARIN 40MG/0.4ML SYR SUBCUT SCH (09:13)
[2019-11-12] MEDS: ASCORBIC ACID 500 MG TABLET PO SCH (09:13)
[2019-11-12 12:00] VITALS: BP 107/76
[2019-11-12 16:00] VITALS: BP 112/82
[2019-11-12 20:00] VITALS: BP 112/78
[2019-11-12] MEDS: ATORVASTATIN CALCIUM 20MG TABLET PO SCH (20:32)
[2019-11-13] VITALS: BP 113/81
[2019-11-13 04:00] VITALS: BP 118/66
[2019-11-13 08:00] VITALS: BP_SYST 111; BP_SYST 124; BP_DIAS 78; BP_DIAS 80
[2019-11-13] MEDS: ASCORBIC ACID 500 MG TABLET PO SCH (08:26)
[2019-11-13] MEDS: ASPIRIN 81MG TABLET PO SCH (08:26)
[2019-11-13] MEDS: ENOXAPARIN 40MG/0.4ML SYR SUBCUT SCH (08:27)
[2019-11-13] MEDS: IPRATROPIUM/ALBUTEROL 0.5-3(2.5)MG/3ML NEB HHN SCH (09:55)
[2019-11-13 12:00] VITALS: BP_SYST 110; BP_SYST 121; BP_DIAS 74; BP_DIAS 80
[2019-11-13 16:00] VITALS: BP_SYST 110; BP_SYST 118; BP_DIAS 69; BP_DIAS 83
[2019-11-13 20:00] VITALS: BP 119/87
[2019-11-13] MEDS: ATORVASTATIN CALCIUM 20MG TABLET PO SCH (20:29)
[2019-11-14] VITALS: BP 112/77
[2019-11-14] MEDS: IPRATROPIUM/ALBUTEROL 0.5-3(2.5)MG/3ML NEB HHN SCH ×4 (00:11→22:00)
[2019-11-14 04:00] VITALS: BP 115/79
[2019-11-14 08:00] VITALS: BP 113/83
[2019-11-14] MEDS: ASCORBIC ACID 500 MG TABLET PO SCH (08:57)
[2019-11-14] MEDS: ASPIRIN 81MG TABLET PO SCH (08:57)
[2019-11-14] MEDS: ENOXAPARIN 40MG/0.4ML SYR SUBCUT SCH (08:58)
[2019-11-14 12:00] VITALS: BP 115/86
[2019-11-14 16:00] VITALS: BP 111/79
[2019-11-14 20:00] VITALS: BP 110/84
[2019-11-14] MEDS: ATORVASTATIN CALCIUM 20MG TABLET PO SCH (20:42)
[2019-11-15] VITALS: BP 119/72
[2019-11-15 04:00] VITALS: BP 119/72
[2019-11-15 08:00] VITALS: BP 112/78
[2019-11-15] MEDS: ASPIRIN 81MG TABLET PO SCH (08:36)
[2019-11-15] MEDS: ASCORBIC ACID 500 MG TABLET PO SCH (08:36)
[2019-11-15] MEDS: ENOXAPARIN 40MG/0.4ML SYR SUBCUT SCH (08:36)
[2019-11-15 20:00] VITALS: BP 117/81
[2019-11-15] MEDS: ATORVASTATIN CALCIUM 20MG TABLET PO SCH (20:37)
[2019-11-16] VITALS: BP 108/81
[2019-11-16 04:00] VITALS: BP 106/75
[2019-11-16 08:00] VITALS: BP 105/76
[2019-11-16] MEDS: ENOXAPARIN 40MG/0.4ML SYR SUBCUT SCH (08:19)
[2019-11-16] MEDS: ASCORBIC ACID 500 MG TABLET PO SCH (08:19)
[2019-11-16] MEDS: ASPIRIN 81MG TABLET PO SCH (08:19)
[2019-11-16 12:00] VITALS: BP 110/79
[2019-11-16 16:00] VITALS: BP 107/77
[2019-11-16 20:00] VITALS: BP 104/76
[2019-11-16] MEDS: ATORVASTATIN CALCIUM 20MG TABLET PO SCH (20:56)
[2019-11-17] VITALS: BP 103/69
[2019-11-17 04:00] VITALS: BP 109/78
[2019-11-17 08:00] VITALS: BP 107/73
[2019-11-17] MEDS: ASPIRIN 81MG TABLET PO SCH (09:02)
[2019-11-17] MEDS: ENOXAPARIN 40MG/0.4ML SYR SUBCUT SCH (09:02)
[2019-11-17] MEDS: ASCORBIC ACID 500 MG TABLET PO SCH (09:02)
[2019-11-17 12:00] VITALS: BP 111/77
[2019-11-17 16:00] VITALS: BP 117/82
[2019-11-17 20:00] VITALS: BP 136/80
[2019-11-17] MEDS: ATORVASTATIN CALCIUM 20MG TABLET PO SCH (20:58)
[2019-11-18] VITALS: BP 113/81
[2019-11-18 04:00] VITALS: BP 111/80
[2019-11-18 08:00] VITALS: BP 108/78
[2019-11-18] MEDS: ASPIRIN 81MG TABLET PO SCH (09:20)
[2019-11-18] MEDS: ASCORBIC ACID 500 MG TABLET PO SCH (09:20)
[2019-11-18] MEDS: ENOXAPARIN 40MG/0.4ML SYR SUBCUT SCH (09:21)
[2019-11-18 12:00] VITALS: BP 153/91
[2019-11-18 16:00] VITALS: BP 120/84
[2019-11-18 20:00] VITALS: BP 121/72
[2019-11-18] MEDS: ATORVASTATIN CALCIUM 20MG TABLET PO SCH (22:10)
[2019-11-19] VITALS: BP 114/85
[2019-11-19 00:02] LABS: CLARITY URINE TURBID (CLEAR); COLOR URINE YELLOW (YELLOW); KETONES URINE NEGATIVE (NEGATIVE); LEUKOCYTE ESTERASE URINE TRACE (NEGATIVE); NITRITE URINE POSITIVE (NEGATIVE); OCCULT BLOOD URINE 3+ (NEGATIVE); PH URINE 7.5 (4.5-8.0); PROTEIN URINE NEGATIVE (NEGATIVE); SPECIFIC GRAVITY URINE 1.019 (1.005-1.030)
[2019-11-19 04:00] VITALS: BP 118/87
[2019-11-19] MEDS: HYDROCODONE/ACETAMINOPHEN 5/325MG TABLET PO PRN ×3 (05:30→20:56)
[2019-11-19 08:00] VITALS: BP 106/72
[2019-11-19] MEDS: ASCORBIC ACID 500 MG TABLET PO SCH (08:17)
[2019-11-19] MEDS: ASPIRIN 81MG TABLET PO SCH (08:17)
[2019-11-19] MEDS: ENOXAPARIN 40MG/0.4ML SYR SUBCUT SCH (08:18)
[2019-11-19 12:00] VITALS: BP 106/73
[2019-11-19 16:00] VITALS: BP 105/78
[2019-11-19] MEDS: CEFTRIAXONE 1 G PREMIX 50 ML IV SCH (16:14)
[2019-11-19 18:43] LABS: CHLORIDE 107 mEq/L (98-107)
[2019-11-19 19:47] LABS: BASOPHILS % 0.6 % (0.0-2.0); EOSINOPHILS % 3.3 % (0.0-5.0); HEMATOCRIT. 40.7 % (42.0-52.0); HEMOGLOBIN. 13.8 g/dL (14.0-18.0); LYMPHOCYTES % 40.2 % (20.0-50.0); MEAN CORPUSCULAR HEMOGLOBIN 32.6 pg (28.0-32.0); MEAN CORPUSCULAR VOLUME 95.8 fL (80.0-94.0); MEAN PLATELET VOLUME 9.6 fl (7.4-10.4); MONOCYTES % 10.4 % (2.0-8.0); NEUTROPHILS % 45.5 % (40.0-76.0); PLATELET 194 x1000/uL (130-400); RED BLOOD CELL COUNT 4.25 mill/uL (4.7-6.1); RED CELL DISTRIBUTION WIDTH 14.3 % (11.6-14.6)
[2019-11-19] MEDS: ATORVASTATIN CALCIUM 20MG TABLET PO SCH (20:09)
[2019-11-20] VITALS: BP 101/75
[2019-11-20 04:00] VITALS: BP 105/75
[2019-11-20 08:00] VITALS: BP 112/83
[2019-11-20] MEDS: ENOXAPARIN 40MG/0.4ML SYR SUBCUT SCH (08:38)
[2019-11-20] MEDS: ASCORBIC ACID 500 MG TABLET PO SCH (08:38)
[2019-11-20] MEDS: ASPIRIN 81MG TABLET PO SCH (08:38)
[2019-11-20] MEDS: CEFTRIAXONE 1 G PREMIX 50 ML IV SCH (09:36)
[2019-11-20] MEDS: HYDROCODONE/ACETAMINOPHEN 5/325MG TABLET PO PRN ×2 (09:42→22:38)
[2019-11-20 12:00] VITALS: BP 101/72
[2019-11-20 16:00] VITALS: BP 104/73
[2019-11-20 20:00] VITALS: BP 115/79
[2019-11-20] MEDS: ATORVASTATIN CALCIUM 20MG TABLET PO SCH (21:34)
[2019-11-21] VITALS: BP 105/81
[2019-11-21 08:00] VITALS: BP 115/69
[2019-11-21] MEDS: ENOXAPARIN 40MG/0.4ML SYR SUBCUT SCH (09:00)
[2019-11-21] MEDS: ASPIRIN 81MG TABLET PO SCH (09:00)
[2019-11-21] MEDS: ASCORBIC ACID 500 MG TABLET PO SCH (09:00)
[2019-11-21 12:00] VITALS: BP 112/78
[2019-11-21] MEDS: HYDROCODONE/ACETAMINOPHEN 5/325MG TABLET PO PRN (12:47)
[2019-11-21] MEDS: CEFTRIAXONE 1 G PREMIX 50 ML IV SCH (13:32)
[2019-11-21 16:00] VITALS: BP_SYST 100; BP_SYST 119; BP_DIAS 72; BP_DIAS 74
[2019-11-21 20:00] VITALS: BP 110/79
[2019-11-21] MEDS: ATORVASTATIN CALCIUM 20MG TABLET PO SCH (21:26)
[2019-11-22] VITALS: BP 104/79
[2019-11-22] MEDS: HYDROCODONE/ACETAMINOPHEN 5/325MG TABLET PO PRN ×2 (02:42→14:47)
[2019-11-22 04:00] VITALS: BP 103/74
[2019-11-22 08:00] VITALS: BP 104/72
[2019-11-22] MEDS: ASPIRIN 81MG TABLET PO SCH (09:12)
[2019-11-22] MEDS: CEFTRIAXONE 1 G PREMIX 50 ML IV SCH (09:12)
[2019-11-22] MEDS: ENOXAPARIN 40MG/0.4ML SYR SUBCUT SCH (09:12)
[2019-11-22 12:00] VITALS: BP 104/74
[2019-11-22 16:00] VITALS: BP 105/74
[2019-11-22 20:00] VITALS: BP 101/79
[2019-11-22] MEDS: ATORVASTATIN CALCIUM 20MG TABLET PO SCH (21:20)
[2019-11-23] VITALS: BP 114/81
[2019-11-23 04:00] VITALS: BP 117/73
[2019-11-23 08:00] VITALS: BP 106/80
[2019-11-23] MEDS: ASPIRIN 81MG TABLET PO SCH (08:53)
[2019-11-23] MEDS: ENOXAPARIN 40MG/0.4ML SYR SUBCUT SCH (08:54)
[2019-11-23] MEDS: HYDROCODONE/ACETAMINOPHEN 5/325MG TABLET PO PRN (08:54)
[2019-11-23] MEDS: CEFTRIAXONE 1 G PREMIX 50 ML IV SCH (10:17)
[2019-11-23 12:00] VITALS: BP 111/77
[2019-11-23 16:00] VITALS: BP 115/82
[2019-11-23 20:00] VITALS: BP 113/80
[2019-11-23] MEDS: ATORVASTATIN CALCIUM 20MG TABLET PO SCH (21:48)
[2019-11-24] VITALS: BP 123/81
[2019-11-24 04:00] VITALS: BP 112/84
[2019-11-24] MEDS: HYDROCODONE/ACETAMINOPHEN 5/325MG TABLET PO PRN (04:34)
[2019-11-24 08:00] VITALS: BP 106/79
[2019-11-24] MEDS: ASPIRIN 81MG TABLET PO SCH (08:45)
[2019-11-24] MEDS: ENOXAPARIN 40MG/0.4ML SYR SUBCUT SCH (08:45)
[2019-11-24 12:00] VITALS: BP 120/88
[2019-11-24] MEDS ORDERED: HYDROCODONE/ACETAMINOPHEN 5/325MG TABLET PO PRN (12:00)
[2019-11-24 16:00] VITALS: BP 114/84
[2019-11-24 20:00] VITALS: BP 112/79
[2019-11-24] MEDS: ATORVASTATIN CALCIUM 20MG TABLET PO SCH (21:35)
[2019-11-25] VITALS: BP 111/61
[2019-11-25 04:00] VITALS: BP 109/75
[2019-11-25 08:00] VITALS: BP 113/85
[2019-11-25] MEDS: ASPIRIN 81MG TABLET PO SCH (09:23)
[2019-11-25] MEDS: ENOXAPARIN 40MG/0.4ML SYR SUBCUT SCH (09:23)
[2019-11-25 12:00] VITALS: BP 110/80
[2019-11-25 16:00] VITALS: BP 121/81
[2019-11-25 20:00] VITALS: BP 111/81
[2019-11-25] MEDS: ATORVASTATIN CALCIUM 20MG TABLET PO SCH (20:41)
[2019-11-26] VITALS: BP 117/97
[2019-11-26 08:00] VITALS: BP 127/88
[2019-11-26] MEDS: ASPIRIN 81MG TABLET PO SCH (08:49)
[2019-11-26] MEDS: ENOXAPARIN 40MG/0.4ML SYR SUBCUT SCH (08:50)
[2019-11-26 12:00] VITALS: BP 116/85
[2019-11-26 16:00] VITALS: BP 118/83
[2019-11-26 20:00] VITALS: BP 118/81
[2019-11-26] MEDS: ATORVASTATIN CALCIUM 20MG TABLET PO SCH (20:13)
[2019-11-27] VITALS: BP 118/68
[2019-11-27 04:00] VITALS: BP 120/80
[2019-11-27 08:00] VITALS: BP 106/74
[2019-11-27] MEDS: ENOXAPARIN 40MG/0.4ML SYR SUBCUT SCH (08:48)
[2019-11-27] MEDS: ASPIRIN 81MG TABLET PO SCH (08:48)
[2019-11-27 12:00] VITALS: BP 114/82
[2019-11-27 16:00] VITALS: BP 121/85
[2019-11-27 20:00] VITALS: BP 119/84
[2019-11-27] MEDS: ATORVASTATIN CALCIUM 20MG TABLET PO SCH (21:34)
[2019-11-28] VITALS: BP 124/80
[2019-11-28 08:00] VITALS: BP_SYST 122; BP_SYST 159; BP_DIAS 81; BP_DIAS 89
[2019-11-28] MEDS: ASPIRIN 81MG TABLET PO SCH (09:48)
[2019-11-28] MEDS: ENOXAPARIN 40MG/0.4ML SYR SUBCUT SCH (09:49)
[2019-11-28 12:00] VITALS: BP 121/86
[2019-11-28 16:00] VITALS: BP 113/83
[2019-11-28 20:00] VITALS: BP 117/91
[2019-11-28] MEDS: ATORVASTATIN CALCIUM 20MG TABLET PO SCH (21:51)
[2019-11-29] VITALS: BP 108/76
[2019-11-29 04:00] VITALS: BP 111/77
[2019-11-29 08:00] VITALS: BP 108/77
[2019-11-29] MEDS: ASPIRIN 81MG TABLET PO SCH (08:30)
[2019-11-29] MEDS: ENOXAPARIN 40MG/0.4ML SYR SUBCUT SCH (08:32)
[2019-11-29 12:00] VITALS: BP 120/77
[2019-11-29 16:00] VITALS: BP 111/78
[2019-11-29 20:00] VITALS: BP 110/83
[2019-11-29] MEDS: ATORVASTATIN CALCIUM 20MG TABLET PO SCH (21:40)
[2019-11-30] VITALS: BP 113/86
[2019-11-30 04:00] VITALS: BP 121/78
[2019-11-30 08:00] VITALS: BP 110/80
[2019-11-30] MEDS: ENOXAPARIN 40MG/0.4ML SYR SUBCUT SCH (09:51)
[2019-11-30 12:00] VITALS: BP 105/80
[2019-11-30 16:00] VITALS: BP 111/80
[2019-11-30 20:00] VITALS: BP 114/82
[2019-12-01] VITALS: BP 115/81
[2019-12-01 04:00] VITALS: BP 117/82
[2019-12-01 08:00] VITALS: BP 125/83
[2019-12-01] MEDS: ENOXAPARIN 40MG/0.4ML SYR SUBCUT SCH (08:31)
[2019-12-01 12:00] VITALS: BP 121/88
[2019-12-01 16:00] VITALS: BP 117/82
[2019-12-01 20:00] VITALS: BP 115/81
[2019-12-02] VITALS: BP 121/84
[2019-12-02 08:00] VITALS: BP 119/81
[2019-12-02] MEDS: ENOXAPARIN 40MG/0.4ML SYR SUBCUT SCH (08:18)
[2019-12-02 09:09] LABS: HEMATOCRIT 38.1 % (42.0-52.0); HEMOGLOBIN 13.2 g/dL (14.0-18.0); MEAN CORPUSCULAR HEMOGLOBIN 32.7 pg (28.0-32.0); MEAN CORPUSCULAR VOLUME 94.2 fL (80.0-94.0); PLATELET 171 x1000/uL (130-400); RED BLOOD CELL COUNT 4.05 mill/uL (4.7-6.1); RED CELL DISTRIBUTION WIDTH 13.7 % (11.6-14.6)
[2019-12-02 09:36] LABS: CHLORIDE 107 mEq/L (98-107)
[2019-12-02 12:00] VITALS: BP 126/89
[2019-12-02 16:00] VITALS: BP 122/89
[2019-12-02 20:00] VITALS: BP 118/86
[2019-12-03] VITALS: BP 119/81
[2019-12-03 04:00] VITALS: BP 124/89
[2019-12-03 08:00] VITALS: BP 113/81
[2019-12-03] MEDS: ENOXAPARIN 40MG/0.4ML SYR SUBCUT SCH (09:02)
[2019-12-03 12:00] VITALS: BP 114/85
[2019-12-03 16:00] VITALS: BP 114/81
[2019-12-03 20:00] VITALS: BP 109/81
[2019-12-04] VITALS: BP 112/80
[2019-12-04 04:00] VITALS: BP 115/80
[2019-12-04 08:00] VITALS: BP 113/79
[2019-12-04] MEDS: ENOXAPARIN 40MG/0.4ML SYR SUBCUT SCH (08:24)
[2019-12-04 12:00] VITALS: BP_SYST 114; BP_SYST 116; BP_DIAS 73; BP_DIAS 80
[2019-12-04 16:00] VITALS: BP 109/80
[2019-12-04 20:00] VITALS: BP 111/81
[2019-12-05] VITALS: BP 112/82
[2019-12-05 04:00] VITALS: BP 123/90
[2019-12-05 08:00] VITALS: BP 116/79
[2019-12-05] MEDS: ENOXAPARIN 40MG/0.4ML SYR SUBCUT SCH (09:08)
[2019-12-05 11:45] VITALS: BP 98/69
[2019-12-05 16:00] VITALS: BP 115/79
[2019-12-05 20:00] VITALS: BP 109/72
[2019-12-06] VITALS: BP 108/78
[2019-12-06 04:00] VITALS: BP 112/78
[2019-12-06 08:00] VITALS: BP 118/85
[2019-12-06] MEDS: ENOXAPARIN 40MG/0.4ML SYR SUBCUT SCH (08:36)
[2019-12-06 12:00] VITALS: BP 112/83
[2019-12-06 16:00] VITALS: BP 122/77
[2019-12-06 20:00] VITALS: BP 111/76
[2019-12-07] VITALS: BP 114/79
[2019-12-07 04:00] VITALS: BP 129/78
[2019-12-07 08:00] VITALS: BP 121/84
[2019-12-07] MEDS: ENOXAPARIN 40MG/0.4ML SYR SUBCUT SCH (09:03)
[2019-12-07 12:00] VITALS: BP 114/82
[2019-12-07 16:00] VITALS: BP 114/84
[2019-12-08] VITALS: BP 119/88
[2019-12-08 04:00] VITALS: BP 116/89
[2019-12-08 08:00] VITALS: BP 114/78
[2019-12-08] MEDS: ENOXAPARIN 40MG/0.4ML SYR SUBCUT SCH (08:39)
[2019-12-08 20:00] VITALS: BP 108/80
[2019-12-09] VITALS: BP 112/84
[2019-12-09 04:00] VITALS: BP 114/75
[2019-12-09 08:00] VITALS: BP 113/72
[2019-12-09] MEDS: ENOXAPARIN 40MG/0.4ML SYR SUBCUT SCH (08:59)
[2019-12-09 12:00] VITALS: BP 115/79
[2019-12-09 16:00] VITALS: BP 105/75
[2019-12-09 20:00] VITALS: BP 115/66
[2019-12-10] VITALS: BP 112/80
[2019-12-10 04:00] VITALS: BP 117/83
[2019-12-10 07:01] LABS: HEMOGLOBIN 13.5 g/dL (14.0-18.0); MEAN CORPUSCULAR VOLUME 93.2 fL (80.0-94.0); PLATELET 168 x1000/uL (130-400); RED BLOOD CELL COUNT 4.08 mill/uL (4.7-6.1)
[2019-12-10 07:12] LABS: CHLORIDE 105 mEq/L (98-107)
[2019-12-10 08:00] VITALS: BP 126/82
[2019-12-10] MEDS: ENOXAPARIN 40MG/0.4ML SYR SUBCUT SCH (08:43)
[2019-12-10 12:00] VITALS: BP 110/81
[2019-12-10] MEDS: HYDROCODONE/ACETAMINOPHEN 5/325MG TABLET PO PRN (12:19)
[2019-12-10 16:00] VITALS: BP 120/84
[2019-12-10 20:00] VITALS: BP 122/81
[2019-12-11] VITALS: BP 109/83
[2019-12-11] MEDS: HYDROCODONE/ACETAMINOPHEN 5/325MG TABLET PO PRN ×4 (02:03→21:25)
[2019-12-11 04:00] VITALS: BP 112/81
[2019-12-11 08:00] VITALS: BP 112/80
[2019-12-11 12:00] VITALS: BP 116/76
[2019-12-11] MEDS: ENOXAPARIN 40MG/0.4ML SYR SUBCUT SCH (13:43)
[2019-12-11 16:00] VITALS: BP 115/74
[2019-12-11 20:00] VITALS: BP 115/85
[2019-12-12] VITALS: BP 117/86
[2019-12-12] MEDS: HYDROCODONE/ACETAMINOPHEN 5/325MG TABLET PO PRN ×2 (01:58→10:37)
[2019-12-12 04:00] VITALS: BP 118/88
[2019-12-12 08:00] VITALS: BP 113/81
[2019-12-12] MEDS: ENOXAPARIN 40MG/0.4ML SYR SUBCUT SCH (09:52)
[2019-12-12 12:00] VITALS: BP 109/74
[2019-12-12 16:00] VITALS: BP 104/73
[2019-12-12 20:00] VITALS: BP 109/77
[2019-12-13] VITALS: BP 114/61
[2019-12-13 04:00] VITALS: BP 111/74
[2019-12-13 08:00] VITALS: BP 112/81
[2019-12-13] MEDS: ENOXAPARIN 40MG/0.4ML SYR SUBCUT SCH (09:14)
[2019-12-13] MEDS: HYDROCODONE/ACETAMINOPHEN 5/325MG TABLET PO PRN (09:15)
[2019-12-13 12:00] VITALS: BP 95/65
[2019-12-13 16:00] VITALS: BP 101/70
[2019-12-13 20:00] VITALS: BP 110/68
[2019-12-14] VITALS: BP_SYST 114; BP_SYST 117; BP_DIAS 65; BP_DIAS 78
[2019-12-14 04:00] VITALS: BP 114/78
[2019-12-14] MEDS: HYDROCODONE/ACETAMINOPHEN 5/325MG TABLET PO PRN (04:37)
[2019-12-14 08:00] VITALS: BP 107/77
[2019-12-14] MEDS: ENOXAPARIN 40MG/0.4ML SYR SUBCUT SCH (09:14)
[2019-12-14 12:00] VITALS: BP 123/80
[2019-12-14 16:00] VITALS: BP 115/83
[2019-12-14 20:00] VITALS: BP 114/77
[2019-12-15] VITALS: BP 119/75
[2019-12-15] MEDS: HYDROCODONE/ACETAMINOPHEN 5/325MG TABLET PO PRN (03:03)
[2019-12-15 04:00] VITALS: BP 113/76
[2019-12-15 08:00] VITALS: BP 115/81
[2019-12-15] MEDS: ENOXAPARIN 40MG/0.4ML SYR SUBCUT SCH (08:38)
[2019-12-15 12:00] VITALS: BP 111/83
[2019-12-15 16:00] VITALS: BP 111/83
[2019-12-15 20:00] VITALS: BP 108/77
[2019-12-16 00:29] VITALS: BP_SYST 113; BP_SYST 138; BP_DIAS 85; BP_DIAS 86
[2019-12-16 04:00] VITALS: BP 114/84
[2019-12-16] MEDS: HYDROCODONE/ACETAMINOPHEN 5/325MG TABLET PO PRN ×3 (06:19→22:22)
[2019-12-16 08:00] VITALS: BP 115/79
[2019-12-16] MEDS: ENOXAPARIN 40MG/0.4ML SYR SUBCUT SCH (09:36)
[2019-12-16 12:00] VITALS: BP 111/82
[2019-12-16 16:00] VITALS: BP 113/80
[2019-12-16 20:00] VITALS: BP 107/77
[2019-12-17 04:00] VITALS: BP 108/72
[2019-12-17 08:00] VITALS: BP 113/82
[2019-12-17] MEDS: ENOXAPARIN 40MG/0.4ML SYR SUBCUT SCH (09:46)
[2019-12-17 16:00] VITALS: BP 114/80
[2019-12-17 20:00] VITALS: BP 109/76
[2019-12-17] MEDS: ACETAMINOPHEN 650MG/20.3ML UDC PO PRN (20:07)
[2019-12-18] VITALS: BP 111/77
[2019-12-18 04:00] VITALS: BP 108/72
[2019-12-18] MEDS: ACETAMINOPHEN 650MG/20.3ML UDC PO PRN (04:50)
[2019-12-18 08:00] VITALS: BP 115/85
[2019-12-18] MEDS: ENOXAPARIN 40MG/0.4ML SYR SUBCUT SCH (08:45)
[2019-12-18 12:00] VITALS: BP 111/79
[2019-12-18 16:00] VITALS: BP 116/85
[2019-12-18 20:00] VITALS: BP 116/81
[2019-12-19] VITALS: BP 122/77
[2019-12-19 04:00] VITALS: BP 115/83
[2019-12-19 08:00] VITALS: BP 116/75
[2019-12-19] MEDS: ENOXAPARIN 40MG/0.4ML SYR SUBCUT SCH (09:03)
[2019-12-19 12:00] VITALS: BP_SYST 107; BP_DIAS 83; BP_DIAS 84
[2019-12-19 16:00] VITALS: BP 120/81
[2019-12-19 17:33] VITALS: BP 118/86
== END 2019-12-19 20:35 | DRG 720 ==
LOC: ER 17:41 → 7EST 22:34 → EDBD 22:34 → EDBEDREQ 22:38 → EDBEDREQTM 22:38 → EDBEDREQSVC 22:38 → ENRESERV 10-14 11:31 → 5WST 10-14 23:10 → 6EST 10-25 09:54
PROVIDERS: ADMIT Internal Medicine; ATTEND Internal Medicine
DX: A41.89 Other specified sepsis (principal); J96.00 Acute respiratory failure, unspecified whether with hypoxia or hypercapnia; E43 Unspecified severe protein-calorie malnutrition; E87.0 Hyperosmolality and hypernatremia; E86.0 Dehydration; Z66 Do not resuscitate; E87.6 Hypokalemia; I12.9 Hypertensive chronic kidney disease with stage 1 through stage 4 chronic kidney disease, or unspecified chronic kidney disease; I69.320 Aphasia following cerebral infarction; L03.115 Cellulitis of right lower limb; N18.9 Chronic kidney disease, unspecified; N39.0 Urinary tract infection, site not specified; B96.4 Proteus (mirabilis) (morganii) as the cause of diseases classified elsewhere; D53.9 Nutritional anemia, unspecified; D69.6 Thrombocytopenia, unspecified; D72.821 Monocytosis (symptomatic); E86.1 Hypovolemia; E87.4 Mixed disorder of acid-base balance; J45.909 Unspecified asthma, uncomplicated; K59.00 Constipation, unspecified; S90.821A Blister (nonthermal), right foot, initial encounter; R73.9 Hyperglycemia, unspecified; N17.0 Acute kidney failure with tubular necrosis; L89.329 Pressure ulcer of left buttock, unspecified stage; J69.0 Pneumonitis due to inhalation of food and vomit; Z51.5 Encounter for palliative care; E80.6 Other disorders of bilirubin metabolism; R65.21 Severe sepsis with septic shock; X58.XXXA Exposure to other specified factors, initial encounter; Y93.89 Activity, other specified; Z74.01 Bed confinement status; Z93.1 Gastrostomy status; Y92.89 Other specified places as the place of occurrence of the external cause; Y99.8 Other external cause status; Z03.818 Encounter for observation for suspected exposure to other biological agents ruled out; Z79.899 Other long term (current) drug therapy; Z82.49 Family history of ischemic heart disease and other diseases of the circulatory system; Z68.27 Body mass index [BMI] 27.0-27.9, adult
CPT/HCPCS: 36415; 71045; 71250; 73700; 74176; 76700; 80048; 80053; 80076; 80202; 81003; 82550; 82553; 82607; 82728; 82746; 82962; 83036; 83540; 83550; 83605; 83615; 83735; 83880; 83930; 83935; 84100; 84145; 84295; 84300; 84484; 85025; 85027; 85379; 86705; 86709; 86803; 87077; 87186; 87340; 87635; 87804; 93005; 93306; 93970; 94640; 99291; J0692; J0696; J1650; J2543; J3370; J3475; J3480; J3490; J7060; J7070; U0003

== ENCOUNTER 2020-09-13 01:12 | Inpatient (IN) | payer MEDICAID ==
[~2020-09-13] VITALS: Ht 177.8 cm; Wt 69.9 kg
[~2020-09-13 01:12] MED LIST: BISA10SU62 RC; LORA-249 MT; OMEP20TA15 GT; [UNRECOGNIZED DRUG - CODE] GT
[2020-09-13] MEDS ORDERED: ONDANSETRON HCL 4MG/2ML INJ IV STA (02:23)
[2020-09-13] MEDS ORDERED: SODIUM CHLORIDE 0.9% 1,000 ML IV ONE (02:30)
[2020-09-13] MEDS ORDERED: LEVETIRACETAM 500MG PREMIX 100 ML IV ONE (02:30)
[2020-09-13 02:42] LABS: BASOPHILS % 0.8 % (0.0-2.0); EOSINOPHILS % 0.4 % (0.0-5.0); HEMATOCRIT. 46.3 % (42.0-52.0); HEMOGLOBIN. 16.2 g/dL (14.0-18.0); LYMPHOCYTES % 15.3 % (20.0-50.0); MEAN CORPUSCULAR HEMOGLOBIN 31.8 pg (28.0-32.0); MEAN CORPUSCULAR VOLUME 90.8 fL (80.0-94.0); MEAN PLATELET VOLUME 8.5 fl (7.4-10.4); MONOCYTES % 8.5 % (2.0-8.0); PLATELET 195 x1000/uL (130-400); RED BLOOD CELL COUNT 5.09 mill/uL (4.7-6.1); RED CELL DISTRIBUTION WIDTH 13.4 % (11.6-14.6)
[2020-09-13 02:48] LABS: CHLORIDE 105 mEq/L (98-107)
[2020-09-13 08:00] VITALS: BP 121/75
[2020-09-13 12:00] VITALS: BP 110/75
[2020-09-13] MEDS ORDERED: NA PHOS,M-B/NA PHOS,DI-BA ENEMA 118ML PR PRN (12:15)
[2020-09-13] MEDS ORDERED: CLONIDINE 0.1MG TABLET PO PRN (12:15)
[2020-09-13] MEDS ORDERED: ACETAMINOPHEN 650MG SUPP PR PRN (12:15)
[2020-09-13] MEDS ORDERED: ACETAMINOPHEN 650MG/20.3ML UDC GT PRN (12:15)
[2020-09-13] MEDS ORDERED: DOCUSATE SODIUM 100MG CAPSULE PO PRN (12:15)
[2020-09-13] MEDS ORDERED: ASPIRIN 81MG TABLET PO SCH (12:15)
[2020-09-13] MEDS ORDERED: ONDANSETRON HCL 4MG/2ML INJ IV PRN (12:15)
[2020-09-13] MEDS ORDERED: MAGNESIUM/ALUMINUM HYDROXIDE/SIMETHICONE 30ML UDC PO PRN (12:15)
[2020-09-13] MEDS ORDERED: ASPIRIN 81MG TABLET PO NR (12:30)
[2020-09-13] MEDS ORDERED: TRAM50TA3 MT (13:13)
[2020-09-13] MEDS ORDERED: DOCU50LI25 MT (13:13)
[2020-09-13] MEDS: ENOXAPARIN 40MG/0.4ML SYR SUBCUT SCH (13:31)
[2020-09-13 16:00] VITALS: BP 114/71
[2020-09-13 16:47] VITALS: BP 110/75
[2020-09-13 20:00] VITALS: BP 112/74
[2020-09-13] MEDS: LEVETIRACETAM 500MG PREMIX 100 ML IV SCH (21:06)
[2020-09-13] MEDS: HYDROCODONE/ACETAMINOPHEN 5/325MG TABLET PO PRN (22:53)
[2020-09-14] VITALS: BP 131/82
[2020-09-14 04:00] VITALS: BP 130/61
[2020-09-14] MEDS: HYDROCODONE/ACETAMINOPHEN 5/325MG TABLET PO PRN (05:51)
[2020-09-14 06:53] LABS: BASOPHILS % 0.6 % (0.0-2.0); EOSINOPHILS % 4.5 % (0.0-5.0); HEMATOCRIT. 41.1 % (42.0-52.0); HEMOGLOBIN. 14.1 g/dL (14.0-18.0); LYMPHOCYTES % 37.9 % (20.0-50.0); MEAN CORPUSCULAR HEMOGLOBIN 31.3 pg (28.0-32.0); MEAN CORPUSCULAR VOLUME 91.6 fL (80.0-94.0); MEAN PLATELET VOLUME 8.8 fl (7.4-10.4); MONOCYTES % 11.2 % (2.0-8.0); NEUTROPHILS % 45.8 % (40.0-76.0); PLATELET 181 x1000/uL (130-400); RED BLOOD CELL COUNT 4.49 mill/uL (4.7-6.1); RED CELL DISTRIBUTION WIDTH 13.4 % (11.6-14.6)
[2020-09-14 06:54] LABS: CHLORIDE 108 mEq/L (98-107)
[2020-09-14 07:05] LABS: LDL CHOLESTEROL 94 mg/dL (5-100)
[2020-09-14 07:07] LABS: HDL CHOLESTEROL 28 mg/dL (40-59)
[2020-09-14 07:56] LABS: CLARITY URINE CLEAR (CLEAR); COLOR URINE YELLOW (YELLOW); KETONES URINE NEGATIVE (NEGATIVE); LEUKOCYTE ESTERASE URINE NEGATIVE (NEGATIVE); NITRITE URINE NEGATIVE (NEGATIVE); OCCULT BLOOD URINE NEGATIVE (NEGATIVE); PH URINE 5.5 (4.5-8.0); PROTEIN URINE NEGATIVE (NEGATIVE); SPECIFIC GRAVITY URINE 1.028 (1.005-1.030)
[2020-09-14 08:00] VITALS: BP 124/70
[2020-09-14] MEDS: ENOXAPARIN 40MG/0.4ML SYR SUBCUT SCH (08:17)
[2020-09-14] MEDS: LEVETIRACETAM 500MG PREMIX 100 ML IV SCH (08:17)
[2020-09-14 08:22] LABS: *AMPHETAMINES SCREEN URINE NEGATIVE (NEGATIVE); *BARBITURATES SCREEN URINE NEGATIVE (NEGATIVE); *BENZODIAZEPINES SCREEN URINE NEGATIVE (NEGATIVE); *COCAINE SCREEN URINE NEGATIVE (NEGATIVE); METHADONE URINE SCREEN NEGATIVE (NEGATIVE)
[2020-09-14 08:23] LABS: CANNABINOID URINE SCREEN NEGATIVE (NEGATIVE); OPIATES URINE SCREEN PRESUMTIVE POSITIVE (NEGATIVE); PHENCYCLIDINE URINE SCREEN NEGATIVE (NEGATIVE)
[2020-09-14] MEDS ORDERED: ASPIRIN 81MG EC TABLET PO SCH (09:00)
[2020-09-14] MEDS ORDERED: KEPP500 MT (09:52)
[2020-09-14 12:00] VITALS: BP 100/66
[2020-09-14 12:34] VITALS: BP 124/70
== END 2020-09-14 14:45 | DRG 53 ==
LOC: ER 01:12 → 8WST 04:05 → ENRESERV 07:20
PROVIDERS: ADMIT Family Medicine; ATTEND Family Medicine
DX: R56.9 Unspecified convulsions (principal); I69.351 Hemiplegia and hemiparesis following cerebral infarction affecting right dominant side; E78.5 Hyperlipidemia, unspecified; F17.210 Nicotine dependence, cigarettes, uncomplicated; I69.320 Aphasia following cerebral infarction; Z79.899 Other long term (current) drug therapy
CPT/HCPCS: 36415; 71045; 74018; 80053; 80061; 80305; 81003; 85025; 93005; 99291; J1650; J1953; J2405; J7030; J7040